=== PATIENT | male | born 1965 | race Caucasian/White ===

== ENCOUNTER 2017-10-04 09:11 | Day surgery (SDC) | payer OTHER ==
[2017-10-04] MEDS ORDERED: Propofol 10 mg/ml Inj (20 ML) ONE ×2 (11:53)
[2017-10-04] MEDS ORDERED: Midazolam 2 MG/2 ML VIAL ONE (11:53)
[2017-10-04 11:57] VITALS: O2SAT 100
[2017-10-04 12:47] VITALS: RESP 16
[2017-10-04] MEDS ORDERED: Lactated Ringer's 500 ML IV SCH (13:15)
[2017-10-04 13:19] VITALS: BP 109/75; PULSE 63; TEMP 98
== END 2017-10-04 13:38 | disposition home or self-care (01) ==
LOC: C.ENDO 09:11
PROVIDERS: ATTEND Internal Medicine
DX: Z12.11 Encounter for screening for malignant neoplasm of colon (principal); K64.8 Other hemorrhoids; N40.0 Benign prostatic hyperplasia without lower urinary tract symptoms
CPT/HCPCS: 45378; J2250; J2704; J7120